=== PATIENT | male | born 1990 | race Caucasian/White ===

== ENCOUNTER 2017-04-25 11:15 | Inpatient (IN) | payer OTHER ==
[~2017-04-25] VITALS: Ht 175.3 cm; Wt 83.5 kg
[2017-04-25 12:05] LABS: MEAN CORPUSCULAR HEMOGLOBIN 30.4 pg (27.0-33.0); MEAN CORPUSCULAR HGB CONC 33.5 g/dl (32.0-36.5); MEAN CORPUSCULAR VOLUME 90.7 fl (80.0-96.0); WHITE BLOOD COUNT 7.4 K/mm3 (4.0-10.0)
[2017-04-25 12:23] LABS: METHADONE URINE NEGATIVE (NEGATIVE)
[2017-04-25 12:32] LABS: ALBUMIN/GLOBULIN RATIO 1.21 (1.00-1.93); ALKALINE PHOSPHATASE 46 U/L (45-117); ALT/SGPT 24 U/L (12-78); ANION GAP 7 MEQ/L (8-16); AST/SGOT 13 U/L (15-37); BILIRUBIN,DIRECT 0.1 MG/DL (0.0-0.2); BILIRUBIN,TOTAL 0.4 MG/DL (0.2-1.0); BLOOD UREA NITROGEN 15 MG/DL (7-18); CALCIUM LEVEL 8.9 MG/DL (8.5-10.1); CARBON DIOXIDE LEVEL 27 MEQ/L (21-32); CHLORIDE LEVEL 103 MEQ/L (98-107); CREATININE FOR GFR 0.72 MG/DL (0.70-1.30); GLOMERULAR FILTRATION RATE > 60.0 (>60); GLUCOSE, FASTING 92 MG/DL (70-105); POTASSIUM SERUM 4.2 MEQ/L (3.5-5.1); SODIUM LEVEL 137 MEQ/L (136-145); TOTAL PROTEIN 7.3 GM/DL (6.4-8.2)
[2017-04-25] MEDS ORDERED: MOM 30ML SUSPENSION UDC PO PRN (17:00)
[2017-04-25] MEDS ORDERED: hydrOXYzine 50 MG TAB PO ONE (17:00)
[2017-04-25] MEDS ORDERED: MAALOX 30 ML SUSP *UDC PO PRN (17:00)
[2017-04-25] MEDS ORDERED: traZODone 50 MG TAB PO SCH (17:00)
[2017-04-25] MEDS ORDERED: hydrOXYzine 50 MG TAB PO PRN (17:00)
[2017-04-25] MEDS ORDERED: traZODone 50 MG TAB PO PRN (17:00)
[2017-04-25] MEDS ORDERED: ACETAMINOPHEN TAB 650MG DOSE (2X325MG) PO PRN (17:00)
[2017-04-25] MEDS ORDERED: traZODone 50 MG TAB PO ONE (17:00)
[2017-04-25 17:44] VITALS: BP 115/69
[2017-04-26 07:06] VITALS: BP 119/66
[2017-04-26] MEDS ORDERED: NICOTINE 21MG/24HR 1 EA TRANSDERMAL TD SCH (09:00)
--- NOTE | 2017-04-26 10:13 | HPEPDOC ---
Medical History and Physical Date of Admission Apr 25, 2017 at 16:38 History and Physical PCP: [facility] ATTENDING: Dr. Dieter Pineda HPI:26yoF admitted to [facility] for unspecified depressive disorder, being medically examined today. No acute medical complaints today. Denies any fevers, chills, weakness, fatigue, CRISTOBAL, CP, SOB, cough, palpitations, abdominal pain, N/V/D or changes in bowel or bladder habits. PMHx: Depression PSHX: Left elbow surgery SOCHX: Resides in: [facility]. Marital Status: Kids: 1 stepchild Employment: Active duty Tobacco use: One pack per day ETOH: Denies Illicit Drugs: Denies IV Drug Use: Denies Tattoos done unprofessionally: Denies FAMHX: Mother: Alive, history of hepatitis C Father: Alive, well Siblings: Alive, well Children: None Unexpected deaths due to medical reasons: None. ROS: As noted in HPI, otherwise 11pt ROS of systems reviewed and unremarkable. PE: GEN: 26yoM, appears stated age. Well-nourished, well developed. No acute distress. Alert and oriented x 3. Pleasant, interactive. HEENT: Normocephalic, atraumatic. Pupils are equal, round, and reactive to light. Extraocular movements are intact. No nystagmus appreciated. Sclera are nonicteric. Conjunctiva without injection. Nose midline. Nasal turbinates without bogginess. EACs both patent BL. TMs both visualized and jones with good cone of light, no bulging or erythema. No facial asymmetry. Moist mucous membranes. Dentition fair. Pharynx pink and moist, no cobblestoning. Neck supple , trachea midline. No lymphadenopathy or thyromegaly appreciated. CHEST: Regular rate and rhythm, +S1, +S2 LUNGS: Clear to auscultation bilaterally. No wheezes, rales, or rhonchi. Breathing appears symmetric and easy. Patient is speaking in full sentences. No accessory muscle use. ABD: Round, soft, non-tender, non-distended. +Bowel sounds throughout. No rebound or guarding. No costovertebral angle tenderness. EXT: Pulses 2+ bilaterally dorsalis pedis and radial. No lower extremity edema appreciated. SKIN: [place], dry, warm. Capillary refill <2sec. No rashes. NEURO: Alert and oriented x 3. Cranial nerves III-XII are intact. No focal deficits appreciated. EKG: Pending. A&P: 26yoF admitted to [facility] for unspecified depressive disorder 1. Psych. Plan per Psychiatry. Obtain baseline EKG to assure the safety of psychiatric medications as they can prolong the QT interval. 2. Nicotine dependence. Patch available. 3. Follow up with PCP on discharge. 4. Staff member Raul present throughout exam. Vital Signs Vital Signs Date Time Temp Pulse Resp B/P (MAP) Pulse Ox O2 Delivery O2 Flow Rate FiO2 04/26/17 07:06 97.6 88 18 119/66 (83) 04/25/17 17:12 98 Room Air Laboratory Data Labs 24H Laboratory Tests 2 04/25/17 11:49: Anion Gap 7L, Glomerular Filtration Rate > 60.0, Calcium Level 8.9, Aspartate Amino Transf (AST/SGOT) 13L, Alanine Aminotransferase (ALT/SGPT) 24, Alkaline Phosphatase 46, Total Bilirubin 0.4, Direct Bilirubin 0.1, Total Protein 7.3, Albumin 4.0, Albumin/Globulin Ratio 1.21, Thyroid Stimulating Hormone (TSH) 1.400, Salicylates Level 1.8L, Urine Amphetamines Screen NEGATIVE, Urine Benzodiazepines Screen NEGATIVE, Urine Opiates Screen NEGATIVE, Urine Methadone Screen NEGATIVE, Acetaminophen Level < 2.0L, Urine Barbiturates Screen NEGATIVE , Urine Phencyclidine Screen NEGATIVE, Urine Cocaine Metabolite Screen NEGATIVE , Urine Cannabinoids Screen NEGATIVE, Ethyl Alcohol Level < 0.003 CBC/BMP Laboratory Tests 04/25/17 11:49 Red Blood Count 5.08, Mean Corpuscular Volume 90.7, Mean Corpuscular Hemoglobin 30.4, Mean Corpuscular Hemoglobin Concent 33.5, Red Cell Distribution Width 13.0 Home Medications No Active Prescriptions or Reported Meds Allergies Coded Allergies: No Known Allergies (Unverified , 04/25/17) Maday Fall Apr 26, 2017 10:13
[2017-04-26] MEDS: NICOTINE POLACRILEX 2 MG GUM PO PRN ×2 (15:56→17:51)
[2017-04-26 18:00] VITALS: BP 122/72
--- NOTE | 2017-04-27 00:41 | ECGEPIP ---
Stationary ECG Study [facility] Test Date: 2017-04-26 Pat Name: MERISSA FOSTER Department: Room: [place] [address] Gender: M Nursing Technician: JOHN : 1990 Requested By: Maday Fall Order Number: [id number] Reading MD: Dieter Pineda Measurements Intervals [place] Rate: 71 P: 60 IA: 151 QRS: -17 QRSD: 115 T: 19 QT: 375 QTc: 410 Interpretive Statements SINUS RHYTHM WITH SINUS ARRHYTHMIA MODERATE INTRAVENTRICULAR CONDUCTION DELAY Comparison tracing not on file Electronically Signed On 04-27-2017 0:41:01 EDT by Dieter Pineda
[2017-04-27 06:21] VITALS: BP 107/57
[2017-04-27] MEDS: NICOTINE POLACRILEX 2 MG GUM PO PRN ×4 (08:38→21:11)
--- NOTE | 2017-04-27 10:01 | MHHPE ---
DATE OF ADMISSION: 04/25/2017 MEDICATION: None. CHIEF COMPLAINT: Depression with suicide plan. 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 He admitted that he had been considering suicide. He had plans to kill himself with carbon monoxide from his car. He had recently increased his life insurance to provide for his after his . His had contacted his chain of command reporting that he has been calling a suicide hotline for the past week. Patient also reported that he has been impotent for the past month. He is afraid he does not have any "testosterone". He does have a number of stressors, the major one being marital conflict. He and his are being referred to marital therapy. Patient's unit will be deployed on [place] in July for nine months. He will little chance to speak to his during that period of time. He is afraid that she is considering leaving him. His best friend in a motor vehicle accident last August. The patient's dog recently which was another major loss. Recently the patient reports his appetite to be good. He has gained weight recently. His concentration fluctuates. His level of energy is normal. He reports his sleep pattern to be fine. He denies history of anxiety symptoms, history of panic attacks, phobias, obsessive compulsive disorder (OCD) or posttraumatic stress disorder (PTSD). PAST PSYCH HISTORY: Patient never been hospitalized before. He has never been on any psychiatric medications before. He has never seen a psychiatrist. MEDICAL HISTORY: Patient is healthy. SURGICAL HISTORY: Patient had an operation on his left elbow at the age of 6. ALLERGIES: Patient denies. LEGAL HISTORY: None. CHEMICAL DEPENDENCY: Patient denies. SOCIAL HISTORY: Patient was born in [place]. His father was in the [employer] for 20 years. They lived all over the country. He even lived in [facility] [place] for 8 years growing up. He graduated high school on [place]. He does have 1-2 years of college from [place]. He has worked in various jobs including lisha, construction, business management, etc. 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 He met his 2 years ago and they got July 2016. She has a daughter Linda. Patient's parents are living in [place]. Patient has two brothers. Relationship with them is good. FAMILY PSYCH HISTORY: Patient denies. MENTAL STATUS EXAMINATION: Patient is alert, oriented, cooperative. Speech is quite rapid and pressured. He reports some anxiety meeting with me but states he has always been a fast talker. He denies history of socorro. No other manic symptoms noted. Patient reports some dysphoria about his marital situation but minimizes it. He denies currently being suicidal. He is not homicidal. No signs of psychosis. Not hearing voices. No signs of paranoia or thought disorder. Grooming and hygiene appear good. No current signs of impulsivity. Memory functions appear intact. DIAGNOSIS: Major depression single episode. Moderate severity. ASSESSMENT: Patient refuses any psychotropics claiming that he only needs marital therapy. He feels optimistic now as his chain of command is very supportive as is his . He feels more hopeful that the marital conflict can be worked through and that his deployment to [place] will not be a problem for the marriage. PLAN: 9.39 confirmed. Staff to coordinate care with [facility]. Patient encouraged to followup in the hospital milieu. Patient will be monitored for possible trial on antidepressants if necessary.
[2017-04-27 18:00] VITALS: BP 113/63
[2017-04-28 06:35] VITALS: BP 110/61
[2017-04-28] MEDS: NICOTINE POLACRILEX 2 MG GUM PO PRN ×3 (08:38→17:41)
--- NOTE | 2017-04-28 13:14 | IPN ---
DATE: 04/27/2017 VITAL SIGNS: Temperature 98.1, pulse 73, respirations 16, blood pressure 107/57. CURRENT MEDICATIONS: - Nicorette gum 4 mg every 2 hours as needed - trazodone 75 mg nightly as needed HISTORY OF PRESENT ILLNESS: Patient states he feels more comfortable on the unit. He has been going to groups. He feels more hopeful about the future. He is less depressed. He has plans for the future, and he is hopeful about his marriage. He plans on marital counseling with help with the [facility] [place]. His appetite is good. Patient is sleeping well at night without any need for trazodone. Patient's had called yesterday concerned about his hospitalization. She was demanding his immediate release. She was beyond assertive and very demanding, and would not take no for an answer. His was reassured that he was safe here on the unit and that the conditions regarding his hospitalization were quite serious in nature. She was encouraged to support his hospital stay. We aim to make this a positive experience. Staff report to me that even this morning she is continuing to call and make complaints. If this continues to the point of her behavior starting to interfere with his patient care, we will need to contact the patient's chain of command to speak to her directly. MENTAL STATUS EXAMINATION: Patient is alert, oriented and cooperative. He appears less anxious. Mood appears improved. He is not voicing any suicidal ideation. No signs of signs of socorro. Speech less pressured today. Patient is not psychotic, not hearing voices. No paranoia or thought disorder. Grooming and hygiene appear quite good. No signs of impulsivity. DIAGNOSIS: Major depression, single episode, moderate severity. ASSESSMENT: Patient still refuses any psychotropics. His depression does appear to be situational in nature, but his mood will be assessed over the weekend. Hopefully, his will cooperate and be supportive of his hospital stay. PLAN: A chain of command meeting is scheduled for Sunday with hopeful discharge in the near future if the patient's mood continues to be good. [facility]
[2017-04-28 18:23] VITALS: BP 104/58
[2017-04-29 06:16] VITALS: BP 106/57
[2017-04-29] MEDS: NICOTINE POLACRILEX 2 MG GUM PO PRN ×3 (08:16→19:35)
[2017-04-29 18:32] VITALS: BP 115/64
[2017-04-30 06:36] VITALS: BP 120/61
[2017-04-30] MEDS: NICOTINE POLACRILEX 2 MG GUM PO PRN (08:14)
--- NOTE | 2017-04-30 16:31 | MHIPN ---
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 Reportedly patient and his have been having marital problems for approximately 4 years and he has been feeling increasingly depressed. He had planned his suicide and had increased his life insurance to benefit his upon his . Apparently his kept waking up in the middle of the night and heard him talking on the phone in the basement, she thought he was having an affair and when she noticed and searched in his cell phone she found out that he has not having an affair, he was contacting a suicide hotline at times when he thought she would be sleeping and she would not listen to him. Patient has been having problems with impotence for approximately 1 month. SUBJECTIVE: Patient reports feeling better, he is working out things with his , they are willing to go to counseling and he feels supported by her and by his friends and family. At this time he says that yes, he feels sad at times but he denies suicidal ideation, he says that he feels hopeful. OBJECTIVE: Patient is alert, oriented times three, cooperative. Initially he seemed to be guarded but he was able to relax through the interview. His speech is normal, his thought process is intact, his thought content is coherent. He denies suicidal and homicidal ideations, denies auditory and visual hallucinations, denies thought delusions. His attention and concentration are fair, his memory is intact. His insight and judgment are improving, his impulse control is fair. His mood is slightly irritable. His affect is constricted. ASSESSMENT: Patient seems to have improved since his admission, apparently because he has been talking to his and both are willing to work on their marital problems. He has not been taking any medication and has been indicated only Atarax and trazodone as needed. Patients diagnosis is major depression, single episode moderate severity. MANAGEMENT PLAN: Patient will continue on the same medications, we will encourage him to attend groups and hopefully will continue improving. At this time patient is stable, not a danger to self or others, will followup.
--- NOTE | 2017-04-30 19:02 | MHIPN ---
DATE: 04/29/2017 26-year-old male who was brought to the emergency room after his called the police because she discovered that he has been contacting a suicide hotline. Patient reported in the emergency room that he has been having problems for a long time with his , had increase the amount of his life insurance, planning his future with carbon monoxide from his car. SUBJECTIVE: No major changes from yesterday April 28, patient reports he is very hopeful, he has received a visit from his and both of them are willing to work on their marriage problem. He says that he feels better, that he mood is normal, and he is hoping to get discharged next Sunday. OBJECTIVE: Patient is alert, oriented, times three, cooperative with interview, pleasant. Patient's thought process is intact, thought content is goal directed, hopeful. He is not responding to internal stimuli, denies thought delusions, denies suicidal or homicidal ideations. Memory is intact, attention and concentration are fair, insight and judgment have improved. Impulse control is good. ASSESSMENT: Patient seems to be stable to be discharged, he is not a danger to self or others at this time. Patient to be evaluated tomorrow by his primary team to evaluate the possibility of discharging him to his chain of command. We will followup.
--- NOTE | 2017-05-01 14:20 | MHDS ---
DATE OF ADMISSION: 04/25/2017 DATE OF DISCHARGE: 04/30/2017 VITAL SIGNS: Temperature 96.8, pulse 72, respirations 18, blood pressure 120/61. LABORATORY DATA: CBC and differential within normal limits. Chem survey within normal limits. Toxicology negative. DISCHARGE MEDICATIONS: None. DISCHARGE DIAGNOSIS: Adjustment disorder with depressed mood. CHIEF COMPLAINT: Depression with suicidal ideation. 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 He had been considering suicide recently. His had contacted the [facility] reported that he had been calling a suicide hotline for the week prior to admission. The patient has a number of stressors, major one being marital conflict. He is afraid that his will be leaving him, especially as he will be deployed in [place] for nine months starting in July. His best friend in a motor vehicle accident back in August. His dog recently . Recently, he states that his appetite has been fine. He has gained weight recently. His concentration fluctuates. Level of energy is normal. Sleep patterns are good. He denies a history of anxiety disorders or symptoms. He has no prior psychiatric history. PROGRESS ON THE UNIT: The patient declined to go on any psychotropics. The patient's mood did improve dramatically once he was hospitalized. His was quite supportive. [employer] was supportive. This helped his mood and self esteem significantly. His became an issue as she was quite demanding that the patient be discharged home to her care prematurely. She would not listen to any reasonable explanations why her needed to be hospitalized, if only briefly. The patient did attend groups in the therapy program, finding it helpful. His appetite is good. He slept well at night. His did visit over the weekend frequently and remained a good support. The patient felt optimistic about the future. [place] confident that he can handle any future stresses. He was willing to followup as an outpatient with services. He did fine without any psychotropics during his brief hospitalization. MENTAL STATUS EXAMINATION: At the time of discharge, mood and affect appeared quite good. Anxiety was minimal. He was not depressed. Not dysphoric. He was not suicidal or homicidal. Grooming and hygiene was quite good. No signs of psychosis. Not hearing voices. No paranoia or thought disorder. No signs of impulsivity or dangerousness. Insight and judgment appeared quite good. Memory function is intact. ASSESSMENT: The patient appeared to reach maximal hospital benefit. PLAN: Discharge after chain of command meeting. Followup at the [facility]. Followup with marital counseling.
== END 2017-04-30 12:15 | disposition home or self-care (01) | DRG 881 ==
LOC: M ED 11:15 → M ED INP 16:38 → M PSY 17:39
PROVIDERS: ADMIT Psychiatry & Neurology Psychiatry; ATTEND Psychiatry & Neurology Psychiatry
DX: F43.21 Adjustment disorder with depressed mood (principal); Z63.0 Problems in relationship with spouse or partner; F17.210 Nicotine dependence, cigarettes, uncomplicated; N52.9 Male erectile dysfunction, unspecified